=== PATIENT | female | born 1945 | race Caucasian/White ===

== ENCOUNTER → 2017-01-14 | Outpatient (CLI) | payer BC ==
[~2017-01-14] MED LIST: BENTYL20 MG DOB; EFFER-K 20 MEQ20 MEQ PO
--- NOTE | ~2017-01-14 | MY11 ---
[facility] A Service of [facility] / [facility] RADIOLOGY TEXT RESULTS PATIENT: JEMAL RAY LOCATION: [facility] : 49 UNIT #: [id number] AGE: [address]: Ambrocio Bailon MD SEX: F ORDER DR: [id number] [facility] [address] [place], [place] [address] [id number] O MR#: [id number] Acc #: [id number] NAME: JEMAL RAY : 1945 SEX: F STUDY DATE/TIME: 01/14/2017 14:00 UNIT: [facility] ROOM: STUDY DESCRIPTION: MY Mammogram Screening Dig Jason Attending Physician: Ambrocio Bailon M.D. Referring Physician: Ambrocio Bailon M.D. Ordering Physician: Ambrocio Bailon M.D. Primary Care Physician: Sujit Hutchins M.D. MEDICAL IMAGING REPORT This report is preliminary unless electronic signature is present EXAM Digital screening mammogram 01/14/2017, [facility] HISTORY 71-year-old woman on hormone replacement x27 years. Annual screen. COMPARISON Mammograms date to 11/12/2006 with most recent 01/12/2016 TECHNIQUE Digital imaging of each breast was completed utilizing screening protocol. Review includes FDA-approved CAD device. FINDINGS Breast parenchyma is partially fatty replaced. 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 I see no interval occurring mass. There are no suspicious microcalcifications and no architectural deformity. IMPRESSION Stable benign mammogram. Annual screening recommended. Patient's over the age of 40 are entered into a reminder system with target due date for the next mammogram. A result letter will be sent to the patient. BIRADS: 2 Benign findings. Dictated by... Nathaniel Zhong M.D. THIS IS AN ELECTRONICALLY VERIFIED REPORT [facility] A Service of [facility] / [facility] RADIOLOGY TEXT RESULTS PATIENT: JEMAL RAY LOCATION: [facility] : 49 UNIT #: [id number] AGE: [address]: Ambrocio Bailon MD SEX: F ORDER DR: Nathaniel Zhong M.D. at 01/15/2017 8:01 AM JBB/john TD: 01/14/2017 16:17 JOB #: [id number] MEDICAL IMAGING REPORT Page 1 of 1 COPY
== END | disposition home or self-care (01) ==
LOC: CWCC 13:40
DX: Z12.31 Encounter for screening mammogram for malignant neoplasm of breast (principal)
CPT/HCPCS: G0202